=== PATIENT | female | born 1995 | race Caucasian/White ===

== ENCOUNTER 2020-11-24 10:40 | Outpatient (REF) | payer OTHER, SELFPAY ==
--- NOTE | ~2020-11-24 | XR_ITS ---
EXAMINATION: XR CHEST CLINICAL INFORMATION: SOB. COMPARISON: None TECHNIQUE: 2 views of the chest were obtained. FINDINGS: No significant abnormality is noted involving the heart, lungs, mediastinum, bony thorax or soft tissues. XR/XR chest 2V IMPRESSION: Unremarkable chest exam.
== END 2020-11-24 10:41 | disposition home or self-care (01) ==
LOC: HO.XRAY 10:40
PROVIDERS: Visit Provider Internal Medicine
DX: R76.12 Nonspecific reaction to cell mediated immunity measurement of gamma interferon antigen response without active tuberculosis (principal)
CPT/HCPCS: 71046

== ENCOUNTER 2021-09-01 13:01 | Outpatient (REF) | payer MEDICAID, SELFPAY ==
[2021-09-03 09:34] LABS: BV Int Neg Control Negative (Negative); BV Int Pos Control Positive (Positive)
== END 2021-09-01 13:02 | disposition home or self-care (01) ==
LOC: HO.LAB 13:01
PROVIDERS: PCP Internal Medicine; Visit Provider Advanced Practice Midwife
DX: Z30.011 Encounter for initial prescription of contraceptive pills (principal); L68.0 Hirsutism; L70.9 Acne, unspecified; Z20.2 Contact with and (suspected) exposure to infections with a predominantly sexual mode of transmission
CPT/HCPCS: 87480; 87510; 87660; 99202

== ENCOUNTER → 2021-12-01 13:14 | Outpatient (BNVA) | payer MEDICAID, SELFPAY | PROVIDERS: Visit Provider Advanced Practice Midwife | DX: N92.6 Irregular menstruation, unspecified (principal); L68.0 Hirsutism; L70.9 Acne, unspecified; Z30.011 Encounter for initial prescription of contraceptive pills | CPT/HCPCS: 99212 ==

== ENCOUNTER 2023-07-01 15:20 | Outpatient (REF) | payer MEDICAID, SELFPAY ==
[2023-07-01 17:24] LABS: MANUAL DIFF FLAG NO
[2023-07-01 17:26] LABS: Basophils Percent Auto 0.8 % (0-2); Eosinophils Absolute Auto 0.1 X10*3/uL (0.0-0.4); Eosinophils Percent Auto 1.5 % (0-4); Hematocrit 39.8 % (37.0-47.0); Hemoglobin 13.2 g/dl (12.0-16.0); Imm Gran Abs Auto 0.01 X10*3/uL (0.00-0.03); Imm Gran Pct Auto 0.2 % (0.0-0.4); Lymphocytes Absolute Auto 2.5 X10*3/uL (1.2-4.9); Lymphocytes Percent Auto 46.5 % (20-40); Mean Corpuscular HGB Conc 33.2 g/dl (31.0-35.0); Mean Corpuscular Volume 93.4 fL (80.0-98.0); Mean Platelet Volume 10.8 fL (9.4-12.3); Monocytes Absolute Auto 0.6 X10*3/uL (0.1-1.2); Monocytes Percent Auto 10.4 % (2-11); Neutrophils Absolute Auto 2.2 x10*3/uL (2.0-8.3); Neutrophils Percent Auto 40.6 % (45-73); Platelet Count 206 X10*3/uL (160-400); Red Blood Count 4.26 X10*6/uL (4.20-5.50); Red Cell Distribution Width 12.5 % (11.0-16.0); White Blood Count 5.3 X10*3/uL (4.8-10.8)
[2023-07-01 17:41] LABS: Anion Gap 13 (12-20); Blood Urea Nitrogen 11 mg/dL (9-16); Calcium 9.5 mg/dL (8.4-10.2); Carbon Dioxide 25 mmol/L (22-29); Chloride 105 mmol/L (96-108); Estimated Glomerular Filt Rate > 60; Glucose Random 86 mg/dL (60-115); Potassium 3.7 mmol/L (3.3-5.1); Sodium 139 mmol/L (135-145)
[2023-07-01 17:58] LABS: Vitamin D 25-OH Total 61.3 ng/mL (>30)
[2023-07-01 18:04] LABS: Vitamin B12 744 pg/mL (200-900)
[2023-07-04 12:52] LABS: Immunoglobulin A 171 mg/dL (47-310)
[2023-07-04 18:24] LABS: Gliadin Deamidated IgA Ab <1.0 U/mL; Gliadin Deamidated IgG Ab 7.8 U/mL; Transglutaminase IgA 2.9 U/mL
[2023-07-07 12:19] LABS: Endomysial IgA Antibody Negative (Negative)
== END 2023-07-01 15:21 | disposition home or self-care (01) ==
LOC: HO.CHCLDS 15:20
PROVIDERS: Visit Provider Internal Medicine
DX: R14.0 Abdominal distension (gaseous) (principal); R53.83 Other fatigue; R19.8 Other specified symptoms and signs involving the digestive system and abdomen
CPT/HCPCS: 36415; 80048; 82306; 82607; 82784; 85025; 86231; 86258; 86364; 87177; 87209; 87329

== ENCOUNTER 2024-02-07 10:29 | Outpatient (REF) | payer MEDICAID, SELFPAY ==
[2024-02-07 14:42] LABS: MANUAL DIFF FLAG NO
[2024-02-07 14:58] LABS: Basophils Percent Auto 0.8 % (0-2); Eosinophils Absolute Auto 0.1 X10*3/uL (0.0-0.4); Eosinophils Percent Auto 1.3 % (0-4); Hematocrit 43.8 % (37.0-47.0); Hemoglobin 14.9 g/dl (12.0-16.0); Imm Gran Abs Auto 0.01 X10*3/uL (0.00-0.03); Imm Gran Pct Auto 0.3 % (0.0-0.4); Lymphocytes Absolute Auto 1.6 X10*3/uL (1.2-4.9); Lymphocytes Percent Auto 39.1 % (20-40); Mean Corpuscular Hemoglobin 31.6 pg (27.0-33.0); Mean Platelet Volume 10.9 fL (9.4-12.3); Monocytes Absolute Auto 0.3 X10*3/uL (0.1-1.2); Monocytes Percent Auto 7.5 % (2-11); Platelet Count 216 X10*3/uL (160-400); Red Blood Count 4.71 X10*6/uL (4.20-5.50); Red Cell Distribution Width 12.2 % (11.0-16.0)
[2024-02-07 15:33] LABS: TSH reflex Free T4 2.13 uIU/mL (0.32-4.0); Vitamin D 25-OH Total 34.1 ng/mL (>30)
== END 2024-02-07 10:30 | disposition home or self-care (01) ==
LOC: HO.CHCLDS 10:29
PROVIDERS: Visit Provider Internal Medicine
DX: R53.83 Other fatigue (principal)
CPT/HCPCS: 36415; 82306; 84443; 85025

== ENCOUNTER 2024-05-07 12:30 | Outpatient (AMB) | payer MEDICAID, SELFPAY ==
--- NOTE | 2024-05-07 13:12 | A.OFFVIS_ITS ---
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 Patient has history of longstanding irregular menses she has been here before discussing these issues and full discussion of PCOS has taken place she cites continuation of her painful menses and interest in doing more testing to get some evaluation of thi s. Lengthy previous note dictating details of her menses and past management was erased so I can not recreate the entire thing however this years periods came on September 26 October 14 December 04 for 3 days then stop for 3 days then resumed December 11, then the beginning of January then February 23 then April 10 and now May 07. In addition she says her periods have been getting more painful. She is virginal and declines in terminal pelvic exams and has always done so. In addition she has questions about her particular labia anatomy she has her periods started today she also says sometimes things feel more inflamed when she has her menses however she uses pads. [facility] Medical History (Updated 05/07/24 @ 15:28 by Francy Mcgee CNM) Appendix disease Family History Paternal Grandmother Breast cancer Paternal Aunt Breast cancer Social History Alcohol intake: never Patient Tobacco Use Status: Never used Tobacco Gender identity: Female Female Reproductive History Menstrual Age of Menarche: 13 Duration of menses: 3-5 days Date of last menstrual period: 05/06/24 control method: none Total pregnancies: 0 History of abnormal pap smear: No (no previous pap) Physical Exam Vital Signs: Last Vital Signs BP 120/70 05/07/24 13:13 BMI result Body Mass Index 21.1 Assessment & Plan Assessment & Plan (1) Menstrual periods irregular: Comment: Along with other issues may be consistent with PCOS. Discussed in 2020 as well. Code(s): N92.6 - Irregular menstruation, unspecified Category: Medical (2) BCP ( control pills) initiation: Code(s): Z30.011 - Encounter for initial prescription of contraceptive pills Category: Medical (3) Acne: Code(s): L70.9 - Acne, unspecified Category: Medical (4) Hirsutism: Code(s): L68.0 - Hirsutism Category: Medical (5) Primary dysmenorrhea: Code(s): N94.4 - Primary dysmenorrhea Category: Medical Plan Lengthy and detailed visit today discussing history and details of PCOS which is been previously discussed and was revisited in great detail today in addition I am ordering labs which were previously discussed and pelvic ultrasound and described to her what possible findings of both and the detail of how they may be done she may declined the pelvic part of it because she is virginal and intent on maintaining that until her choice. Additionally I am ordering her the control pills that she was on before at her request and we will see how she does on them to at least manage her painful periods discussed all the other modalities for dealing with painful periods and the range of normal indeed discussed the range of normal for all of the testing norms that have been establishing Western culture and that they may not reflect norms in her culture and the norms of hirsute is Um in various populations throughout the world. We will have a follow-up visit after all which will include a full showroom consultant visit and exam so far she will allow discussed that there is research going on on HPV testing that will not involve a Pap smear but it is not ready for prime time yet. Discussed normal anatomical changes as she had concern a about her elongated did labia on 1 side and that this maybe just her normal variation. Defer to future exams for future discussion on this will have her start the control pills at the beginning of her. Which is now. We were review all labs in the future. Orders: Orders TSH reflex Free T4 Today L68.0 - Hirsutism, L70.9 - Acne, unspecified, N92.6 - Irregular menstruation, unspecified, N93.9 - Abnormal uterine and vaginal bleeding, unspecified, N94.4 - Primary dysmenorrhea, Z30.011 - Encounter for initial prescription of contraceptive pills Lutenizing Hormone Today L68.0 - Hirsutism, L70.9 - Acne, unspecified, N92.6 - Irregular menstruation, unspecified, N94.4 - Primary dysmenorrhea, Z30.011 - Encounter for initial prescription of contraceptive pills Testosterone, Free/Total Today L68.0 - Hirsutism, L70.9 - Acne, unspecified, N92.6 - Irregular menstruation, unspecified, N94.4 - Primary dysmenorrhea, Z30.011 - Encounter for initial prescription of contraceptive pills Hemoglobin A1c Today L68.0 - Hirsutism, L70.9 - Acne, unspecified, N92.6 - Irregular menstruation, unspecified, N94.4 - Primary dysmenorrhea, Z30.011 - Encounter for initial prescription of contraceptive pills US pelvic and transvaginal Today L68.0 - Hirsutism, L70.9 - Acne, unspecified, N92.6 - Irregular menstruation, unspecified, N94.4 - Primary dysmenorrhea, Z30.011 - Encounter for initial prescription of contraceptive pills Complete Blood Count no Diff Today L68.0 - Hirsutism, L70.9 - Acne, unspecified, N92.6 - Irregular menstruation, unspecified, N93.9 - Abnormal uterine and vaginal bleeding, unspecified, N94.4 - Primary dysmenorrhea, Z30.011 - Encounter for initial prescription of contraceptive pills Sex Hormone Binding Globulin Today L68.0 - Hirsutism, L70.9 - Acne, unspecified, N92.6 - Irregular menstruation, unspecified, N94.4 - Primary dysmenorrhea, Z30.011 - Encounter for initial prescription of contraceptive pills Prolactin Today L68.0 - Hirsutism, L70.9 - Acne, unspecified, N92.6 - Irregular menstruation, unspecified, N94.4 - Primary dysmenorrhea, Z30.011 - Encounter for initial prescription of contraceptive pills DHEA Sulfate Today L68.0 - Hirsutism, L70.9 - Acne, unspecified, N92.6 - Irregular menstruation, unspecified, N94.4 - Primary dysmenorrhea, Z30.011 - Encounter for initial prescription of contraceptive pills Medications: New norgestimate-ethinyl estradiol 0.25-35 mg-mcg 1 tab PO DAILY 84 tabs 4RF Coding Level of Care Code Est Pt Level 3 (44075) Diagnoses Menstrual periods irregular N92.6 BCP ( control pills) initiation Z30.011 Acne L70.9 Hirsutism L68.0 Primary dysmenorrhea N94.4 Time Spent (min) 45 Comment 95% spent review in patient history and explaining medical management, 5% ordering labs an
[2024-05-07 13:13] VITALS: BP 120/70; BMI 21.1
== END 2024-05-07 14:56 | disposition home or self-care (01) ==
PROVIDERS: PCP Internal Medicine; Visit Provider Advanced Practice Midwife
DX: N92.6 Irregular menstruation, unspecified (principal); Z30.011 Encounter for initial prescription of contraceptive pills; L70.9 Acne, unspecified; L68.0 Hirsutism; N94.4 Primary dysmenorrhea
CPT/HCPCS: 99213

== ENCOUNTER → 2024-05-07 12:30 | Outpatient (BNVA) | payer MEDICAID, SELFPAY | PROVIDERS: PCP Internal Medicine; Visit Provider Advanced Practice Midwife | DX: N92.6 Irregular menstruation, unspecified (principal); N94.4 Primary dysmenorrhea; L70.9 Acne, unspecified; L68.0 Hirsutism; Z30.011 Encounter for initial prescription of contraceptive pills | CPT/HCPCS: 99212 ==

== ENCOUNTER 2024-06-14 10:52 | Outpatient (REF) | payer MEDICAID, SELFPAY ==
--- NOTE | ~2024-06-14 | US_ITS ---
EXAMINATION: US PELVIS CLINICAL INFORMATION: Dysmenorrhea COMPARISON: None available. TECHNIQUE: Ultrasound of the pelvis is performed using both transabdominal and transvaginal transducers along with Doppler. Transvaginal imaging is performed due to inadequate visualization transabdominally. FINDINGS: Uterus: The uterus is anteverted and measures 6.9 x 3.4 x 4.6 cm. The double wall endometrial thickness is 4 mm. The uterus is smooth in contour and has normal myometrial echogenicity. No visible fibroid. Adnexa: Both ovaries are visualized. There is normal color flow to the adnexa. There is no ovarian torsion. There is no pelvic ascites or fluid collection. Right ovary measures 3.2 x 1.3 x 2.2 cm for a volume of 4.8 mL. Left ovary measures 3.0 x 2.2 x 2.1 cm for a volume of 6.6 mL. US/US pelvic complete IMPRESSION: Unremarkable pelvic ultrasound. Electronically signed by: Tiburcio Yanes MD 07/28/2024 01:34 PM JAYNA
== END 2024-06-14 10:53 | disposition home or self-care (01) ==
LOC: HO.US 10:52
PROVIDERS: PCP Internal Medicine; Visit Provider Advanced Practice Midwife
DX: N94.4 Primary dysmenorrhea (principal); N92.6 Irregular menstruation, unspecified
CPT/HCPCS: 76856